=== PATIENT | male | born 1990 | race Caucasian/White ===

== ENCOUNTER 2018-07-11 17:45 | Emergency (ER) | payer OTHER ==
[2018-07-11 18:01] VITALS: BP 140/97; PULSE 89; TEMP 98; BMI 32.3
[2018-07-11] MEDS ORDERED: KETOROLAC TROMETHAMINE 60 MG/2 ML VIAL IM ONE (18:39)
--- NOTE | 2018-07-11 18:42 | PDOC ---
History of Present Illness - General Chief Complaint: Chronic pain Stated Complaint: LOWER BACK PAIN REFERRING Time Seen by Provider: 07/11/18 18:35 - History of Present Illness Initial Comments: 07/11/18 18:40 28-year-old male without comorbidities presents for evaluation of lower back pain without radicular symptoms, systemic symptoms, or loss of bowel or bladder function times one year recently exacerbated without any precipitating traumatic event over the last week. Past History - Past Medical History Allergies/Adverse Reactions: Allergies Allergy/AdvReac Type Severity Reaction Status Date / Time No Known Allergies Allergy Verified 07/11/18 18:01 Home Medications: Ambulatory Orders Cyclobenzaprine HCl [Flexeril 10 mg] 10 mg PO HS PRN #10 tablet 07/11/18 Ibuprofen [Motrin -] 600 mg PO TID #30 tablet 07/11/18 Naproxen Sodium [Aleve] 220 mg PO BID 07/11/18 COPD: No CHF: No Disorders: No Lung CA: No - Surgical History Cardiac Surgery: No Cholecystectomy: No - Immunization History Immunization Up to Date: No - Suicide/Smoking/Psychosocial Hx Smoking History: Never smoked Have you smoked in the past 12 months: No Information on smoking cessation initiated: No Hx Alcohol Use: No Drug/Substance Use Hx: No Review of Systems - Review of Systems Musculoskeletal: Yes: Back Pain *Physical Exam - Vital Signs Last Vital Signs Temp Pulse Resp BP Pulse Ox 98.0 F 89 18 140/97 98 07/11/18 17:59 07/11/18 17:59 07/11/18 17:59 07/11/18 17:59 07/11/18 17:59 - Physical Exam Comments: 07/11/18 18:40 Lumbar spine skin color and temperature are normal. Range of motion is slightly decreased. There is no midline tenderness. Mild right and left paralumbar musculature spasm and tenderness. 5 out of 5 strength in bilateral lower extremities without gross sensorimotor deficits. Thighs and calves are soft and nontender. Moderate Sedation - Procedure Monitoring Vital Signs: Procedure Monitoring Vital Signs Temperature 98.0 F 07/11/18 17:59 Pulse Rate 89 07/11/18 17:59 Respiratory Rate 18 07/11/18 17:59 Blood Pressure 140/97 07/11/18 17:59 O2 Sat by Pulse Oximetry (%) 98 02/25/19 17:59 *DC/Admit/Observation/Transfer Diagnosis at time of Disposition: Lumbar strain - Discharge Dispostion Disposition: HOME Condition at time of disposition: Stable Decision to Admit order: No - Prescriptions Prescriptions: Cyclobenzaprine HCl [Flexeril 10 mg] 10 mg PO HS PRN #10 tablet PRN Reason: Muscle Spasms Ibuprofen [Motrin -] 600 mg PO TID #30 tablet - Referrals Referrals: Chico Bourne MD [Primary Care Provider] - Manuel Auguste MD [Staff Physician] - Jamie Ruby [Non Staff, Medical] - - Patient Instructions Printed Discharge Instructions: Low Back Pain, DI for Low Back Pain Additional Instructions: Discontinue the Naprosyn. Please take the Motrin one tablet 3 times a day with food. Start that prescription tomorrow. He will given a dose of a long-acting anti-inflammatory today in the emergency room. The muscle relaxers one tablet before bedtime and will make you sleepy. Do not drive with this medication. Follow-up with spine surgery in 1-2 days for further evaluation and treatment options. I've also given you the name of an internal medicine doctor at your request. Return to the emergency room for worsening symptoms. - Post Discharge Activity
[2018-07-11] MEDS ORDERED: KETOROLAC TROMETHAMINE 60 MG/2 ML VIAL ONE (18:44)
== END 2018-07-11 18:50 | disposition home or self-care (01) ==
LOC: JERFT 17:45
PROC: 3E0233Z Introduction of Anti-inflammatory into Muscle, Percutaneous Approach (ICD-10-PCS; principal; 2018-07-11)
DX: S39.012A Strain of muscle, fascia and tendon of lower back, initial encounter (principal); M62.830 Muscle spasm of back; X58.XXXA Exposure to other specified factors, initial encounter; Y93.89 Activity, other specified; Y92.89 Other specified places as the place of occurrence of the external cause; Y99.8 Other external cause status
CPT/HCPCS: 99281-25

== ENCOUNTER 2023-07-19 16:08 | Emergency (ER) | payer OTHER ==
[2023-07-19 16:32] VITALS: TEMP 98.5; BMI 31.5
[2023-07-19] MEDS ORDERED: IBUPROFEN 600 MG TABLET (FP) PO ONE (19:45)
[2023-07-19] MEDS: IBUPROFEN 600 MG TABLET (FP) PO ONE (19:53)
[2023-07-19 19:54] LABS: BASO % 0.7 % (0-2.0); EOS % 1.4 % (0-4.5); HEMATOCRIT 50.3 % (35.4-49); HEMOGLOBIN 17.6 GM/dL (11.7-16.9); LYMPH % 28.2 % (8-40); MCH 30.2 pg (25.7-33.7); MEAN CELL VOLUME 86.3 fl (80-96); MEAN PLT VOLUME 7.3 fl (7.5-11.1); MONO % 8.7 % (3.8-10.2); PLATELET COUNT 233 10^3/uL (134-434); RBC 5.82 M/mm3 (4.00-5.60); RDW 13.9 % (11.9-15.9); WHITE BLOOD COUNT 6.5 K/mm3 (4.0-10.0)
[2023-07-19 20:14] LABS: ACTIVATED PTT 35.3 SECONDS (25.2-36.5); INR 1.09 (0.83-1.09); PROTHROMBIN TIME (PATIENT) 12.6 SEC (9.7-13.0)
[2023-07-19 20:45] LABS: POTASSIUM 4.3 mmol/L (3.5-5.1)
[2023-07-19 20:47] LABS: ALBUMIN 3.7 g/dl (3.4-5.0); BLOOD UREA NITROGEN 12.2 mg/dL (7-18); CALCIUM 9.5 mg/dL (8.5-10.1)
[2023-07-19 20:50] LABS: CREATININE 0.7 mg/dL (0.55-1.3)
[2023-07-19 20:51] LABS: BILIRUBIN,TOTAL 0.6 mg/dL (0.2-1); TOT PROT 7.7 g/dl (6.4-8.2)
[2023-07-19 21:42] VITALS: BP 147/90; PULSE 78; RESP 20
== END 2023-07-19 21:51 | disposition home or self-care (01) ==
LOC: JER 16:08
DX: R07.89 Other chest pain (principal); R05.9 Cough, unspecified; R53.83 Other fatigue; M54.6 Pain in thoracic spine
CPT/HCPCS: 36415; 71046-TC-FY; 80053; 84484; 85025; 85610; 85730; 93005; 93010; 99285-25